=== PATIENT | male | born 1955 | race Caucasian/White ===

== ENCOUNTER 2020-04-08 13:22 | Outpatient (CLI) | payer OTHER ==
--- NOTE | 2020-04-08 14:56 | MRI ---
MR the lumbar spine without contrast: 04/08/2020 History: Lumbar radiculopathy, low back pain radiating into the left leg with numbness and tingling COMPARISON: None available TECHNIQUE: Multiplanar multisequence MR images were obtained of lumbar spine without IV contrast FINDINGS: On the basis of 5 lumbar type vertebral bodies, conus medullaris terminates at theL1 level. Sagittal STIR imaging demonstrates minimal osseous marrow edema within the inferior aspect of the rig ht L5 pedicle. No anterolisthesis or retrolisthesis is evident within the lumbar spine. T12-L1:There is mild bilateral facet hypertrophy. No significant central canal or neural foraminal st enosis. Mild anterior osteophyte formation. L1-2:Intervertebral disc height and signal intensity within normal limits. No significant central can al or neural foraminal stenosis. Bilateral facet hypertrophy, left greater than right. L2-3:There is bilateral facet hypertrophy, left greater than right. Mild left neural foraminal stenos is. No significant central canal or right neural foraminal stenosis. Bilateral ligamentum flavum hypertrophy. L3-4:There is disc space narrowing with disc desiccation and disc bulge. There is a central disc sheng iation with 5 mm of inferior migration. This results in mild/moderate central canal stenosis. Bilateral facet hypertrophy and hypertrophy of the ligamentum flavum noted with mild bilateral neural foraminal stenosis. L4-5:There is disc space narrowing with disc desiccation and a small disc osteophyte complex. There i s bilateral facet hypertrophy and hypertrophy of the ligamentum flavum with mild central canal stenosis. There is moderate/severe bilateral neural foraminal stenosis. L5-S1:There is disc space narrowing and disc desiccation with mild disc bulge. There is prominent pebbles ateral facet hypertrophy and hypertrophy of the ligamentum flavum. No central canal stenosis. Severe bilateral neural foraminal stenosis. Image retroperitoneal structures demonstrateno acute findings. IMPRESSION: Multilevel degenerative change within the lumbar spine, most significant at L3-4, L4-5, and L5-S1 as detailed above.
== END 2020-04-08 13:23 | disposition home or self-care (01) ==
LOC: BICMRI 13:22
PROVIDERS: ATTEND Family Medicine
DX: S39.012D Strain of muscle, fascia and tendon of lower back, subsequent encounter (principal); M47.26 Other spondylosis with radiculopathy, lumbar region; M47.817 Spondylosis without myelopathy or radiculopathy, lumbosacral region
CPT/HCPCS: 72148